=== PATIENT | female | born 1995 | race African-American/Black ===

== ENCOUNTER 2019-05-27 09:34 | Emergency (ER) | payer OTHER, SELFPAY ==
[2019-05-27 09:35] VITALS: BP 132/81; PULSE 82; RESP 18; TEMP 36.6; O2SAT 100; BMI 23.8
[2019-05-27 09:55] LABS: Add Manual Diff / Slide Review NO; Basophils Absolute Auto 100 /uL (0-100); Basophils Percent Auto 0.9 % (0-2); Eosinophils Absolute Auto 100 /uL (0-450); Eosinophils Percent Auto 0.9 % (2-4); Hematocrit 35.6 % (36-46); Hemoglobin 10.7 g/dL (12.0-16.0); Lymphocytes Absolute Auto 2000 /uL (1100-4500); Lymphocytes Percent Auto 32.2 % (25-40); Mean Corpuscular Hemoglobin 22.9 PG (26-34); Mean Corpuscular Volume 76.1 fL (80-100); Monocytes Absolute Auto 400 /uL (0-900); Monocytes Percent Auto 6.8 % (3-14); Neutrophils Absolute Auto 3600 /uL (1500-7000); Neutrophils Percent Auto 59.2 % (50-75); Platelet Count 374 X10^3/uL (150-400); Red Blood Cell Count 4.68 X10^6/uL (4.0-5.2); Red Cell Distribution Width 23.5 % (11.6-14.8); White Blood Cell Count 6.1 X10^3/uL (4.5-11.0)
--- NOTE | 2019-05-27 09:59 | ED_ITS ---
HPI - Syncope General Chief Complaint: Abdominal Pain Stated Complaint: Abd pain, nausea, passed out at work Time Seen by Provider: 05/27/19 09:42 Source: patient Mode of arrival: ambulatory Limitations: no limitations History of Present Illness HPI narrative: Patient is a 23 year female who presents with left lower quadrant pain. She was standing today at work when the pain got to be so severe that she passed out. She has not had any nausea or vomiting. She is trying naturally to get . Last menstrual period was 05/13/2019. She denies any abnormal vaginal bleeding. Related Data Allergies Allergy/AdvReac Type Severity Reaction Status Date / Time No Known Drug Allergies Allergy Verified 05/27/19 11:29 Review of Systems Review of Systems GENERAL: Denies chills, fatigue, malaise, fever, sweats, travel HEENT: Denies sinus pain, ear pain, sore throat, difficulty swallowing, neck pain RESPIRATORY: Denies dyspnea, cough, wheezing, hemoptysis, sputum. CARDIOVASCULAR: Denies chest pain, palpitations, orthopnea, edema GASTROINTESTINAL: Denies nausea, vomiting, abdominal pain, diarrhea, constipation, melena. : Denies dysuria, frequency, incontinence, hematuria, urinary retention, flank pain. MUSCULOSKELETAL: Denies weakness, joint pain, or bony pain SKIN: No rash, no erythema, no pruritus NEUROLOGIC: Denies weakness, dizziness, headache, numbness, change in speech, confusion PSYCHIATRIC: No concerning psychosocial issues. 12 point review of systems is negative except for those stated above and HPI ROS Unobtainable: All systems reviewed & are unremarkable except as noted in HPI and below Constitutional Denies chills, Denies fever(s), Denies lethargy and Denies weakness Eyes Denies change in vision, Denies eye discharge, Denies irritation and Denies loss of vision Cardiovascular Denies chest pain, Reports syncope, Denies irregular heart rhythm, Denies dyspnea and Denies dyspnea on exertion Respiratory Denies cough, Denies dyspnea, Denies dyspnea on exertion and Denies wheezing Gastrointestinal Gastrointestinal: Reports as per HPI Genitourinary Denies hematuria, Denies flank pain, Denies urinary incontinence and Denies urinary urgency Musculoskeletal Denies back pain, Denies muscle weakness, Denies numbness and Denies tingling Integumentary/Breasts Denies pruritus, Denies erythema, Denies rash and Denies wounds Neurologic Reports syncope, Denies loss of vision, Denies numbness, Denies tingling and Denies weakness Allergic/Immunologic Denies wheezing [facility] Medical History Patient denies significant medical history (Acute) Social History Smoking Status: Former smoker Social History Smoking Status: Former smoker Exam Initial Vital Signs Initial Vital Signs: Vital Signs Temperature 97.9 F 05/27/19 09:35 Pulse Rate 82 05/27/19 09:35 Respiratory Rate 18 05/27/19 09:35 Blood Pressure 132/81 05/27/19 09:35 Pulse Oximetry 100 05/27/19 09:35 GENERAL: [Well-appearing, well-nourished] and in [no acute] distress. HEENT: Head atraumatic,EOMI, pupils reactive, face symmetric, [moist] mucous membranes CARDIOVASCULAR: Regular rate and rhythm without murmurs, rubs or gallops. RESPIRATORY: Breath sounds equal bilaterally, no wheezes rales or rhonchi. ABDOMEN: Soft, tender left lower quadrant no guarding no rebound : No CVA tenderness EXTREMITIES: Normal range of motion, no clubbing or edema. Neurovascularly intact NEUROLOGICAL: Alert and oriented x4.Normal gait and speech. Cranial nerves II through XII grossly intact. SKIN: Warm, dry, no laceration, no petechiae, no rashes or lesions. Course Orders Ordered: ED Orders 05/27/19 09:43 Complete Blood Count AUTO DIFF Stat Comprehensive Metabolic Panel Stat Lipase Stat Partial Thromboplastin Time Stat Prothrombin Time INR Stat 05/27/19 09:49 EKG-12 Lead Stat 05/27/19 10:02 HCG Quantitative Stat 05/27/19 10:40 US pelvic complete Stat Discontinued Medications Sodium Chloride (Normal Saline 0.9%) 1,000 mls @ 1,000 mls/hr IV BOLUS ONE Stop: 05/27/19 10:50 Last Infusion: 05/27/19 12:41 Dose: 0 mls/hr Admin: 05/27/19 10:20 Dose: 1,000 mls/hr Ketorolac Tromethamine (Toradol) 30 mg IV NOW ONE Stop: 05/27/19 12:01 Last Admin: 05/27/19 11:57 Dose: 30 mg Vital Signs - 8 hr 05/27/19 09:35 05/27/19 10:38 05/27/19 12:14 Temperature 97.9 F Pulse Rate 82 62 62 Respiratory Rate 18 18 Blood Pressure 132/81 Blood Pressure [Left Arm] 122/71 Pulse Oximetry 100 100 100 05/27/19 12:41 Temperature Pulse Rate 79 Respiratory Rate 16 Blood Pressure 120/69 Blood Pressure [Left Arm] Pulse Oximetry 98 MDM - Syncope Lab Data Attestation: I reviewed the patient's lab results. Result diagrams: 05/27/19 09:43 05/27/19 09:43 Lab Results 05/27/19 05/27/19 05/27/19 Range/Units 09:43 09:43 09:43 WBC 6.1 (4.5-11.0) X10^3/uL RBC 4.68 (4.0-5.2) X10^6/uL Hgb 10.7 L (12.0-16.0) g/dL Hct 35.6 L (36-46) % MCV 76.1 L (80-100) fL MCH 22.9 L (26-34) PG MCHC 30.0 (30-36) % RDW 23.5 H (11.6-14.8) % Plt Count 374 (150-400) X10^3/uL Neut % (Auto) 59.2 (50-75) % Lymph % (Auto) 32.2 (25-40) % [place] % (Auto) 6.8 (3-14) % Eos % (Auto) 0.9 L (2-4) % Baso % (Auto) 0.9 (0-2) % Neut # (Auto) 3600 (8854-8672) /uL Lymph # (Auto) 2000 (8086-3314) /uL [place] # (Auto) 400 (0-900) /uL Eos # (Auto) 100 (0-450) /uL Baso # (Auto) 100 (0-100) /uL RBC Morphology See below Hypochromasia 1+ H Anisocytosis 2+ H PT 12.6 (10.1-12.7) SECONDS INR 1.1 (0.9-1.3) APTT 28 (26.4-36.2) SECONDS Sodium 140 (137-145) mmol/L Potassium 4.0 (3.4-5.1) mmol/L Chloride 103 (98-107) mmol/L Carbon Dioxide 26 (22-32) mmol/L BUN 13 (7-17) mg/dL Creatinine 0.60 (0.52-1.04) mg/dL Estimated GFR > 60.0 (>60) mL/min BUN/Creatinine Ratio 21.7 (6-22) Glucose 72 (70-100) mg/dL Calcium 9.5 (8.4-10.2) mg/dL Total Bilirubin 0.3 (0.2-1.3) mg/dL AST 28 (14-36) IU/L ALT 19 (9-52) IU/L Alkaline Phosphatase 56 (38-126) U/L Total Protein 8.6 H (6.3-8.2) g/dL Albumin 4.7 (3.5-5.0) g/dL Globulin 3.9 (1.7-4.1) g/dL Albumin/Globulin Ratio 1.2 (1.0-2.8) Lipase 91 (23-300) U/L HCG, Quant mIU/mL 05/27/19 Range/Units 10:02 WBC (4.5-11.0) X10^3/uL RBC (4.0-5.2) X10^6/uL Hgb (12.0-16.0) g/dL Hct (36-46) % MCV (80-100) fL MCH (26-34) PG MCHC (30-36) % RDW (11.6-14.8) % Plt Count (150-400) X10^3/uL Neut % (Auto) (50-75) % Lymph % (Auto) (25-40) % [place] % (Auto) (3-14) % Eos % (Auto) (2-4) % Baso % (Auto) (0-2) % Neut # (Auto) (0053-8535) /uL Lymph # (Auto) (2185-2355) /uL [place] # (Auto) (0-900) /uL Eos # (Auto) (0-450) /uL Baso # (Auto) (0-100) /uL RBC Morphology Hypochromasia Anisocytosis PT (10.1-12.7) SECONDS INR (0.9-1.3) APTT (26.4-36.2) SECONDS Sodium (137-145) mmol/L Potassium (3.4-5.1) mmol/L Chloride (98-107) mmol/L Carbon Dioxide (22-32) mmol/L BUN (7-17) mg/dL Creatinine (0.52-1.04) mg/dL Estimated GFR (>60) mL/min BUN/Creatinine Ratio (6-22) Glucose (70-100) mg/dL Calcium (8.4-10.2) mg/dL Total Bilirubin (0.2-1.3) mg/dL AST (14-36) IU/L ALT (9-52) IU/L Alkaline Phosphatase (38-126) U/L Total Protein (6.3-8.2) g/dL Albumin (3.5-5.0) g/dL Globulin (1.7-4.1) g/dL Albumin/Globulin Ratio (1.0-2.8) Lipase (23-300) U/L HCG, Quant < 2.39 mIU/mL Urine Dip Bedside Urine Glucose Negative Bedside Urine Bilirubin - Negative Bedside Urine Ketone - Negative Urine Specific [place] 1.015 Bedside Urine Occult Blood - Negative Bedside Urine pH 6.0 Bedside Urine Protein - Negative Bedside Urine Urobilinogen - Negative Bedside Urine Nitrite + Positive Bedside Urine Leukocytes - Negative Esterase Imaging Data us pelvis: Radiologist's impression: PROCEDURE: US PELVIC COMPLETE INDICATIONS: LEFT PELVIC PAIN AND SYNCOPE TECHNIQUE: Real-time scanning was performed of the pelvic organs, with image documentation. Additional endovaginal scanning was necessary due to incomplete visualization of the adnexal and endometrial structures by transabdominal scanning. COMPARISON: None. FINDINGS: Transabdominal scanning: Limited scanning through the kidneys shows no hydronephrosis. No pathologic free abdominal or pelvic fluid. Endovaginal scanning: Uterus: Uterus is normal in size at 7.6 x 4.5 x 5.0 cm. The endometrium measures 13-14 mm in combined thickness. Ovaries: Right ovary unremarkable measures 3.0 x 1.1 x 1.8 cm. The left ovary measures 3.5 x 2.4 x 2.9 cm and there is a complex cyst with internal echoes measuring 2.4 x 1.9 x 2.4 cm, possibly involuting or hemorrhagic follicular cyst technically indeterminate. Doppler interrogation demonstrates expected arterial waveforms. IMPRESSION: Presumed involuting left ovarian physiologic cyst. Six-week followup ultrasound could be performed to document resolution as the patients symptoms and clinical scenario dictate. Dictated by: Jameson Camarillo M.D. on 05/27/2019 at 12:37 ECG Data Attestation: I personally reviewed and interpreted this ECG as follows: Prior ECG tracings: not available for review Interpretation: Normal sinus rhythm rate 71 p.r. interval [address] changes no T-wave inversion MDM Narrative Medical decision making narrative: Patient overall appears well. She is not . No sign of ectopic. She does have a left ovarian cyst. Recommended follow-up. Discharge Plan Departure Patient Disposition: Home Clinical Impression: Ovarian cyst Qualifiers: Laterality: left Qualified Code(s): N83.202 - Unspecified ovarian cyst, left side Discharge Date/Time: 05/27/19 12:43 Interventions: ED Discharge Assessment Last Done: 05/27/19 12:41 Instructions: DI for Ovarian Cyst Activity Restrictions/Additional Instructions: *You have been diagnosed with ovarian cyst left-sided *What to do: Insist causes pain. It should resolve on its own. However it is recommended that you have repeat ultrasound in about 2-3 months to ensure it has resolved. It should not affect your ability to get *Continue to take medications as directed Motrin 800 mg every 8 hours if needed for pain *Follow up with your primary care provider in 2-3 days *Return to ER if you should have increasing pain passing out persistent vomiting or any new, worsening or concerning symptoms Referrals: [facility] [Outside]
[2019-05-27 10:01] LABS: INR 1.1 (0.9-1.3); Prothrombin Time 12.6 SECONDS (10.1-12.7)
[2019-05-27 10:03] LABS: PTT Partial Thromboplastin Tim 28 SECONDS (26.4-36.2)
[2019-05-27 10:05] LABS: Alanine Aminotransferase 19 IU/L (9-52); Albumin 4.7 g/dL (3.5-5.0); Albumin Globulin Ratio 1.2 (1.0-2.8); Alkaline Phosphatase 56 U/L (38-126); Aspartate Aminotransferase 28 IU/L (14-36); BUN Creatinine Ratio 21.7 (6-22); Bilirubin Total 0.3 mg/dL (0.2-1.3); Blood Urea Nitrogen 13 mg/dL (7-17); Calcium 9.5 mg/dL (8.4-10.2); Carbon Dioxide 26 mmol/L (22-32); Chloride 103 mmol/L (98-107); Estimated Glomerular Filt Rate > 60.0 mL/min (>60); Globulin 3.9 g/dL (1.7-4.1); Glucose 72 mg/dL (70-100); HEMOLYSIS < 15 (0-50); Lipase 91 U/L (23-300); Sodium 140 mmol/L (137-145); Total Protein 8.6 g/dL (6.3-8.2)
[2019-05-27 10:17] LABS: Anisocytosis 2+; Hypochromasia 1+
[2019-05-27] MEDS: SODIUM CHLORIDE 0.9% 1,000 ML 1000 ML IV (10:20)
[2019-05-27 10:28] LABS: HCG Quantitative /Beta subunit < 2.39 mIU/mL
[2019-05-27 10:38] VITALS: PULSE 62; O2SAT 100
--- NOTE | 2019-05-27 10:40 | DI.US.S_ITS ---
PROCEDURE: US PELVIC COMPLETE INDICATIONS: LEFT PELVIC PAIN AND SYNCOPE TECHNIQUE: Real-time scanning was performed of the pelvic organs, with image documentation. Additional endovaginal scanning was necessary due to incomplete visualization of the adnexal and endometrial structures by transabdominal scanning. COMPARISON: None. FINDINGS: Transabdominal scanning: Limited scanning through the kidneys shows no hydronephrosis. No pathologic free abdominal or pelvic fluid. Endovaginal scanning: Uterus: Uterus is normal in size at 7.6 x 4.5 x 5.0 cm. The endometrium measures 13-14 mm in combined thickness. Ovaries: Right ovary unremarkable measures 3.0 x 1.1 x 1.8 cm. The left ovary measures 3.5 x 2.4 x 2.9 cm and there is a complex cyst with internal echoes measuring 2.4 x 1.9 x 2.4 cm, possibly involuting or hemorrhagic follicular cyst technically indeterminate. Doppler interrogation demonstrates expected arterial waveforms. IMPRESSION: Presumed involuting left ovarian physiologic cyst. Six-week followup ultrasound could be performed to document resolution as the patients symptoms and clinical scenario dictate. Dictated by: Jameson Camarillo M.D. on 05/27/2019 at 12:37 Approved by: Jameson Camarillo M.D. on 05/27/2019 at 12:41
[2019-05-27] MEDS: KETOROLAC 60 MG/2 ML VIAL 30 MG IV (11:57)
[2019-05-27 12:14] VITALS: BP 122/71; PULSE 62; RESP 18; O2SAT 100
[2019-05-27 12:41] VITALS: BP 120/69; PULSE 79; RESP 16; O2SAT 98
== END 2019-05-27 12:43 | disposition home or self-care (01) ==
PROVIDERS: Emergency Provider Emergency Medicine
DX: N83.202 Unspecified ovarian cyst, left side (principal); R55 Syncope and collapse; R10.32 Left lower quadrant pain; Y99.1 Military activity
CPT/HCPCS: 36591; 76830; 76856; 80053; 81003; 83690; 84702; 85025; 85610; 85730; 93005; 96361; 96374; 99283; 99285; J1885

== ENCOUNTER 2019-10-21 15:10 | Emergency (ER) | payer OTHER, SELFPAY ==
[2019-10-21 15:13] VITALS: BP 116/70; PULSE 62; RESP 18; TEMP 36.1; O2SAT 100
[2019-10-21] MEDS: ONDANSETRON 4 MG ODT PO (15:20)
--- NOTE | 2019-10-21 15:28 | ED.ABDPAIN ---
HPI - Abdominal Pain General Chief Complaint: Abdominal Pain Stated Complaint: 2 wks abd cramps vomiting all day Time Seen by Provider: 10/21/19 15:27 Source: patient Mode of arrival: Ambulatory Limitations: no limitations Related Data Allergies Allergy/AdvReac Type Severity Reaction Status Date / Time No Known Drug Allergies Allergy Verified 05/27/19 11:29 Patient History Social History Smoking Status: Former smoker Smoking Status: Former smoker alcohol intake frequency: 0-2 drinks per day Substance Use Type: does not use Exam Initial Vital Signs Initial Vital Signs: Vital Signs Temperature 97.0 F L 10/21/19 15:13 Pulse Rate 62 10/21/19 15:13 Respiratory Rate 18 10/21/19 15:13 Blood Pressure 116/70 10/21/19 15:13 Pulse Oximetry 100 10/21/19 15:13 Course Orders Ordered: ED Orders 10/21/19 15:18 Complete Blood Count AUTO DIFF Stat Comprehensive Metabolic Panel Stat Lipase Stat Partial Thromboplastin Time Stat Prothrombin Time INR Stat Discontinued Medications Ondansetron HCl (Zofran Odt) 4 mg PO NOW ONE Stop: 10/21/19 15:19 Last Admin: 10/21/19 15:20 Dose: 4 mg Documented by: RAMA Vital Signs Vital signs: Vital Signs - 8 hr 10/21/19 15:13 Temperature 97.0 F L Pulse Rate 62 Respiratory Rate 18 Blood Pressure 116/70 Pulse Oximetry 100 MDM - Abdominal Pain Lab Data Point of care testing: Point of Care Testing Test Results Negative Urine Dip Bedside Urine Glucose Negative Bedside Urine Bilirubin + 1 Bedside Urine Ketone - Negative Urine Specific [place] 1.015 Bedside Urine Occult Blood - Negative Bedside Urine pH 6.0 Bedside Urine Protein - Negative Bedside Urine Urobilinogen - Negative Bedside Urine Nitrite + Positive Bedside Urine Leukocytes - Negative Esterase
[2019-10-21 15:34] LABS: Add Manual Diff / Slide Review NO; Basophils Absolute Auto 100 /uL (0-100); Basophils Percent Auto 0.8 % (0-2); Eosinophils Absolute Auto 0 /uL (0-450); Eosinophils Percent Auto 0.6 % (2-4); Hematocrit 36.8 % (36-46); Hemoglobin 11.9 g/dL (12.0-16.0); Lymphocytes Absolute Auto 2400 /uL (1100-4500); Lymphocytes Percent Auto 40.2 % (25-40); Mean Corpuscular HGB Conc 32.3 % (30-36); Mean Corpuscular Hemoglobin 28.2 PG (26-34); Mean Corpuscular Volume 87.4 fL (80-100); Monocytes Absolute Auto 400 /uL (0-900); Monocytes Percent Auto 7.2 % (3-14); Neutrophils Absolute Auto 3100 /uL (1500-7000); Neutrophils Percent Auto 51.2 % (50-75); Platelet Count 309 X10^3/uL (150-400); Red Blood Cell Count 4.21 X10^6/uL (4.0-5.2); Red Cell Distribution Width 13.6 % (11.6-14.8); White Blood Cell Count 6.1 X10^3/uL (4.5-11.0)
[2019-10-21 15:40] LABS: RBC Urine None Seen (0-5/HPF)
[2019-10-21 15:44] LABS: INR 1.1 (0.9-1.3); Prothrombin Time 12.9 SECONDS (10.1-12.7)
[2019-10-21 15:46] LABS: PTT Partial Thromboplastin Tim 31 SECONDS (26.4-36.2)
[2019-10-21 15:47] LABS: Amorphous Sediment Urine 1+; Bacteria Urine Many (>30); Squamous Epithelial Cell Urine 1-5 /HPF (0-5/HPF); WBC Urine 5-10/HPF (0-5/HPF)
[2019-10-21 15:48] LABS: Culture Indicated Urine Specimen Cultured; Mucus Urine 1+ (Negative)
[2019-10-21 15:48] LABS: Alanine Aminotransferase 16 IU/L (<35); Albumin 4.6 g/dL (3.5-5.0); Albumin Globulin Ratio 1.2 (1.0-2.8); Alkaline Phosphatase 59 U/L (38-126); Aspartate Aminotransferase 28 IU/L (14-36); BUN Creatinine Ratio 15.7 (6-22); Bilirubin Total 0.5 mg/dL (0.2-1.3); Blood Urea Nitrogen 11 mg/dL (7-17); Calcium 9.7 mg/dL (8.4-10.2); Carbon Dioxide 26 mmol/L (22-32); Chloride 102 mmol/L (98-107); Estimated Glomerular Filt Rate > 60.0 mL/min (>60); Globulin 3.7 g/dL (1.7-4.1); Glucose 83 mg/dL (70-100); HEMOLYSIS < 15 (0-50); Lipase 73 U/L (23-300); Potassium 3.9 mmol/L (3.4-5.1); Sodium 137 mmol/L (137-145); Total Protein 8.3 g/dL (6.3-8.2)
--- NOTE | 2019-10-21 17:00 | ED.ABDPAIN ---
HPI - Abdominal Pain General Chief Complaint: Abdominal Pain Stated Complaint: 2 wks abd cramps vomiting all day Time Seen by Provider: 10/21/19 15:27 Source: patient Mode of arrival: Ambulatory Limitations: no limitations History of Present Illness HPI narrative: Patient is a 24-year-old female with history of anemia presenting with 2 weeks of abdominal cramping she says it's been off and on she initially thought it was due to her. However she finished her menstrual cycle and she still has some lower abdominal cramping. She started vomiting today she is unable to keep anything down. No diarrhea no fevers, or chills. She received Zofran by triage in is now tolerating oral fluids and feeling better. MD complaint: abdominal pain Onset (ago): hour(s) Severity: mild Quality: cramping Radiation: none Related Data Previous Rx's Medication Instructions Recorded ondansetron 4 mg PO Q8H PRN #10 tab 10/21/19 Allergies Allergy/AdvReac Type Severity Reaction Status Date / Time No Known Drug Allergies Allergy Verified 05/27/19 11:29 Review of Systems Review of Systems Narrative: GENERAL: Denies chills, fatigue, malaise, fever, sweats, travel HEENT: Denies sinus pain, ear pain, sore throat, difficulty swallowing, neck pain RESPIRATORY: Denies dyspnea, cough, wheezing, hemoptysis, sputum. CARDIOVASCULAR: Denies chest pain, palpitations, orthopnea, edema GASTROINTESTINAL: See HPI : Denies dysuria, frequency, incontinence, hematuria, urinary retention, flank pain. MUSCULOSKELETAL: Denies weakness, joint pain, or bony pain SKIN: No rash, no erythema, no pruritus NEUROLOGIC: Denies weakness, dizziness, headache, numbness, change in speech, confusion PSYCHIATRIC: No concerning psychosocial issues. 12 point review of systems is negative except for those stated above and HPI Patient History Medical History Anemia (Acute) Patient denies significant medical history (Acute) Social History Smoking Status: Former smoker Smoking Status: Former smoker alcohol intake frequency: 0-2 drinks per day Substance Use Type: does not use Exam Initial Vital Signs Initial Vital Signs: Vital Signs Temperature 97.0 F L 10/21/19 15:13 Pulse Rate 62 10/21/19 15:13 Respiratory Rate 18 10/21/19 15:13 Blood Pressure 116/70 10/21/19 15:13 Pulse Oximetry 100 10/21/19 15:13 GENERAL: Well-appearing, well-nourished and in no acute distress. HEENT: Head atraumatic,EOMI, pupils reactive CARDIOVASCULAR: Regular rate and rhythm without murmurs, rubs or gallops. RESPIRATORY: Breath sounds equal bilaterally, no wheezes rales or rhonchi. ABDOMEN: Soft, nontender. Normoactive bowel sounds all 4 quadrants. No guarding or rebound. EXTREMITIES: Normal range of motion, no clubbing or edema. Neurovascularly intact NEUROLOGICAL: Alert and oriented x4.Normal gait and speech. SKIN: Warm, dry, no laceration, no petechiae, no rashes or lesions. Course Orders Ordered: ED Orders 10/21/19 15:19 Urine Culture Stat Urine Microscopic Stat 10/21/19 15:26 Complete Blood Count AUTO DIFF Stat Comprehensive Metabolic Panel Stat Lipase Stat Partial Thromboplastin Time Stat Prothrombin Time INR Stat Discontinued Medications Ondansetron HCl (Zofran Odt) 4 mg PO NOW ONE Stop: 10/21/19 15:19 Last Admin: 10/21/19 15:20 Dose: 4 mg Documented by: RAMA Vital Signs Vital signs: Vital Signs - 8 hr 10/21/19 15:13 10/21/19 17:08 Temperature 97.0 F L Pulse Rate 62 58 L Respiratory Rate 18 18 Blood Pressure 116/70 Blood Pressure [Right Arm] 122/70 Pulse Oximetry 100 99 MDM - Abdominal Pain Lab Data Attestation: I reviewed the patient's lab results. Result diagrams: 10/21/19 15:26 10/21/19 15:26 Labs: Lab Results 10/21/19 10/21/19 10/21/19 Range/Units 15:19 15:26 15:26 WBC 6.1 (4.5-11.0) X10^3/uL RBC 4.21 (4.0-5.2) X10^6/uL Hgb 11.9 L (12.0-16.0) g/dL Hct 36.8 (36-46) % MCV 87.4 (80-100) fL MCH 28.2 (26-34) PG MCHC 32.3 (30-36) % RDW 13.6 (11.6-14.8) % Plt Count 309 (150-400) X10^3/uL Neut % (Auto) 51.2 (50-75) % Lymph % (Auto) 40.2 H (25-40) % [place] % (Auto) 7.2 (3-14) % Eos % (Auto) 0.6 L (2-4) % Baso % (Auto) 0.8 (0-2) % Neut # (Auto) 3100 (5832-3459) /uL Lymph # (Auto) 2400 (4135-4117) /uL [place] # (Auto) 400 (0-900) /uL Eos # (Auto) 0 (0-450) /uL Baso # (Auto) 100 (0-100) /uL PT 12.9 H (10.1-12.7) SECONDS INR 1.1 (0.9-1.3) APTT 31 D (26.4-36.2) SECONDS Sodium (137-145) mmol/L Potassium (3.4-5.1) mmol/L Chloride (98-107) mmol/L Carbon Dioxide (22-32) mmol/L BUN (7-17) mg/dL Creatinine (0.52-1.04) mg/dL Estimated GFR (>60) mL/min BUN/Creatinine Ratio (6-22) Glucose (70-100) mg/dL Calcium (8.4-10.2) mg/dL Total Bilirubin (0.2-1.3) mg/dL AST (14-36) IU/L ALT (<35) IU/L Alkaline Phosphatase (38-126) U/L Total Protein (6.3-8.2) g/dL Albumin (3.5-5.0) g/dL Globulin (1.7-4.1) g/dL Albumin/Globulin Ratio (1.0-2.8) Lipase (23-300) U/L Urine RBC None seen (0-5/HPF) Urine WBC 5-10/hpf H (0-5/HPF) Ur Squamous Epith Cells 1-5 /hpf (0-5/HPF) Amorphous Sediment 1+ Urine Bacteria Many (>30) H (None) Urine Mucus 1+ H (Negative) Ur Culture Indicated? Specimen cultured 10/21/19 Range/Units 15:26 WBC (4.5-11.0) X10^3/uL RBC (4.0-5.2) X10^6/uL Hgb (12.0-16.0) g/dL Hct (36-46) % MCV (80-100) fL MCH (26-34) PG MCHC (30-36) % RDW (11.6-14.8) % Plt Count (150-400) X10^3/uL Neut % (Auto) (50-75) % Lymph % (Auto) (25-40) % [place] % (Auto) (3-14) % Eos % (Auto) (2-4) % Baso % (Auto) (0-2) % Neut # (Auto) (6250-6006) /uL Lymph # (Auto) (0311-0544) /uL [place] # (Auto) (0-900) /uL Eos # (Auto) (0-450) /uL Baso # (Auto) (0-100) /uL PT (10.1-12.7) SECONDS INR (0.9-1.3) APTT (26.4-36.2) SECONDS Sodium 137 (137-145) mmol/L Potassium 3.9 (3.4-5.1) mmol/L Chloride 102 (98-107) mmol/L Carbon Dioxide 26 (22-32) mmol/L BUN 11 (7-17) mg/dL Creatinine 0.70 (0.52-1.04) mg/dL Estimated GFR > 60.0 (>60) mL/min BUN/Creatinine Ratio 15.7 (6-22) Glucose 83 (70-100) mg/dL Calcium 9.7 (8.4-10.2) mg/dL Total Bilirubin 0.5 (0.2-1.3) mg/dL AST 28 (14-36) IU/L ALT 16 (<35) IU/L Alkaline Phosphatase 59 (38-126) U/L Total Protein 8.3 H (6.3-8.2) g/dL Albumin 4.6 (3.5-5.0) g/dL Globulin 3.7 (1.7-4.1) g/dL Albumin/Globulin Ratio 1.2 (1.0-2.8) Lipase 73 (23-300) U/L Urine RBC (0-5/HPF) Urine WBC (0-5/HPF) Ur Squamous Epith Cells (0-5/HPF) Amorphous Sediment Urine Bacteria (None) Urine Mucus (Negative) Ur Culture Indicated? Point of care testing: Point of Care Testing Test Results Negative Urine Dip Bedside Urine Glucose Negative Bedside Urine Bilirubin + 1 Bedside Urine Ketone - Negative Urine Specific [place] 1.015 Bedside Urine Occult Blood - Negative Bedside Urine pH 6.0 Bedside Urine Protein - Negative Bedside Urine Urobilinogen - Negative Bedside Urine Nitrite + Positive Bedside Urine Leukocytes - Negative Esterase MDM Narrative Medical decision making narrative: Patient denies any dysuria urinary frequency no UTI symptom she has no leukocytes or nitrates in her urine however she does have bacteria this time not treat. She is tolerating oral fluids since given Zofran. At this time no need for IV fluids. Discharge Plan Departure Patient Disposition: Home Clinical Impression: Gastroenteritis Discharge Date/Time: 10/21/19 17:20 Instructions: DI for Viral Gastroenteritis -- Adult Activity Restrictions/Additional Instructions: 1) You have been diagnosed with gastroenteritis 2) What to do: Drink frequent but small amounts of fluids. I recommend Gatorade or a Gatorade-like product, as it has small amounts of sugar and salts that improve fluid retention. 3) Take medications as directed 4) Follow up with your primary care provider in 2-3 days [and follow up with ortho, urology etc] 5) Return to ER if you should have any new or worsening symptoms such as, unable to hold down fluids despite use of anti-nausea medications and the small volume oral rehydration strategy. Prescriptions: New ondansetron 4 mg tablet,disintegrating 4 mg PO Q8H PRN (Reason: nausea and vomiting) Qty: 10 RF: 0 Referrals: [facility] [Outside]
[2019-10-21 17:08] VITALS: BP 122/70; PULSE 58; RESP 18; O2SAT 99
== END 2019-10-21 17:20 | disposition home or self-care (01) ==
PROVIDERS: Nurse Practitioner Family; Emergency Provider Emergency Medicine
DX: A08.4 Viral intestinal infection, unspecified (principal); N39.0 Urinary tract infection, site not specified
CPT/HCPCS: 36415; 80053; 81003; 81015; 81025; 83690; 85025; 85610; 85730; 87077; 87086; 87186; 99282; 99283

== ENCOUNTER 2019-12-22 09:49 | Emergency (ER) | payer OTHER, SELFPAY ==
[2019-12-22 09:58] VITALS: BP 123/74; PULSE 105; RESP 16; TEMP 36.7; O2SAT 100; BMI 23.3
--- NOTE | 2019-12-22 11:45 | ED.URI ---
HPI - URI/Sore Throat <OLGA Burgess - Last Filed: 12/22/19 21:54> General Chief Complaint: Upper Respiratory Symptoms Stated Complaint: swabbed for strep Time Seen by Provider: 12/22/19 09:54 Source: patient Mode of arrival: Ambulatory History of Present Illness HPI Narrative: 24yo female with a history of anemia presents to the emergency department complaining of a sore throat that started last night. She states her co-worker was recently diagnosed with strep throat and she is worried she may have the same. She does report occasional dry cough and rhinorrhea this morning. Patient states she was given Macrobid yesterday for urinary tract infection but has not started taking this at this time yet. She denies any fevers or chills at home, chest pain, shortness of breath, dizziness, productive cough, dizziness, nausea, vomiting, diarrhea at this time, or any other concerns. Patient states she did vomit once at the beginning of the week but has not had any issues since. Related Data Home Medications Medication Instructions Recorded Confirmed nitrofurantoin monohyd/m-cryst 100 mg PO BID 12/22/19 12/22/19 Previous Rx's Medication Instructions Recorded ondansetron 4 mg PO Q8H PRN #10 tab 10/21/19 Allergies Allergy/AdvReac Type Severity Reaction Status Date / Time No Known Drug Allergies Allergy Verified 12/22/19 09:58 Review of Systems <OLGA Burgess - Last Filed: 12/22/19 21:54> Review of Systems Narrative: REVIEW OF SYSTEMS: GENERAL: Denies fevers. HENT: No head trauma or hearing loss. Reports sore throat, see HPI. EYES: No loss of vision, double vision, eye pain, irritation or discharge. CARDIOVASCULAR: No chest pain or syncope. RESPIRATORY: No shortness of breath. Reports dry cough, see HPI. GASTROINTESTINAL: No nausea, vomiting, diarrhea, or constipation. MUSCULOSKELETAL: No weakness or injury. INTEGUMENTARY: No rash, lesions, or pruritus. NEURO: No memory loss, or confusion. Patient History <OLGA Burgess - Last Filed: 12/22/19 21:54> Medical History Anemia (Acute) Patient denies significant medical history (Acute) Social History Smoking Status: Former smoker Smoking Status: Former smoker alcohol intake frequency: 0-2 drinks per day Substance Use Type: does not use Exam <OLGA Burgess - Last Filed: 12/22/19 21:54> Initial Vital Signs Initial Vital Signs: Vital Signs Temperature 98.1 F 12/22/19 09:58 Pulse Rate 105 H 12/22/19 09:58 Respiratory Rate 16 12/22/19 09:58 Blood Pressure 123/74 12/22/19 09:58 Pulse Oximetry 100 12/22/19 09:58 PHYSICAL EXAMINATION: GENERAL: Well groomed, alert, and cooperative. Answers questions promptly and appropriately. Vital signs noted. HENT: Normocephalic, atraumatic. Ear canals patent. TMs intact without mucus or erythema. Oropharynx with erythema, tonsils 1+, small amount exudate noted, small amount of petechiae noted. EYES: PERRLA, conjunctiva pink, sclera white, no periorbital swelling. No discharge. CHEST: Normal to inspection and without deformities. CARDIOVASCULAR: S1 and S2 sounds normal. Regular rate and rhythm, no murmurs, clicks, or bruits. RESPIRATORY: Normal respiratory rate, trachea midline, airway patent. No stridor, nasal flaring or accessory muscle use. Able to speak in full sentences. Lungs are clear in all morfin without wheeze, rhonchi, or crackles. MUSCULOSKELETAL: Normal gait and coordination. Equal tone and mass bilaterally. GI: Abdomen soft and nontender. EXTREMITIES: Moves all extremities. SKIN: Warm, dry, soft, appropriate color for ethnicity. No lesions, rashes, or wounds to visualized areas. NEURO: Alert and Oriented X 3. Good coordination. No ataxia or cognitive issues. PSYCH: Appropriate affect and mood. <Gino Hernadez DO - Last Filed: 12/23/19 08:10> Initial Vital Signs Initial Vital Signs: Vital Signs Temperature 98.1 F 12/22/19 09:58 Pulse Rate 105 H 12/22/19 09:58 Respiratory Rate 16 12/22/19 09:58 Blood Pressure 123/74 12/22/19 09:58 Pulse Oximetry 100 12/22/19 09:58 Course <OLGA Burgess - Last Filed: 12/22/19 21:54> Course Course Narrative: Patient was swabbed for strep, the initial test was evaluated. Patient's swab was retested. Vital Signs Vital signs: Vital Signs - 8 hr 12/22/19 09:58 Temperature 98.1 F Pulse Rate 105 H Respiratory Rate 16 Blood Pressure 123/74 Pulse Oximetry 100 <Gino Hernadez DO - Last Filed: 12/23/19 08:10> Vital Signs Vital signs: Vital Signs - 8 hr 12/22/19 09:58 Temperature 98.1 F Pulse Rate 105 H Respiratory Rate 16 Blood Pressure 123/74 Pulse Oximetry 100 MDM - URI/Sore Throat <Clarita OLGA Smith - Last Filed: 12/22/19 21:54> Medical Records Attestation: I reviewed the patient's medical records. Lab Data Attestation: I reviewed the patient's lab results. Labs: Point of Care Testing Rapid Strep A Negative MDM Narrative Medical decision making narrative: History and examination consistent with viral pharyngitis due to negative strep test, presence of cough, and presence of rhinorrhea as well as lack of other significant symptoms such as tachycardia or fever to suggest other. Patient was educated about [id number] symptom control, ibuprofen, saltwater gargles. She was encouraged to follow up with her primary care provider in 1-2 weeks for further evaluation. Patient agrees to plan of care verbalized understanding. <Gino Hernadez DO - Last Filed: 12/23/19 08:10> Lab Data Labs: Point of Care Testing Rapid Strep A Negative Discharge Plan Departure Patient Disposition: Home Clinical Impression: Pharyngitis Qualifiers: Pharyngitis/tonsillitis etiology: unspecified etiology Qualified Code(s): J02.9 - Acute pharyngitis, unspecified Discharge Date/Time: 12/22/19 12:20 Instructions: DI for Viral Pharyngitis Activity Restrictions/Additional Instructions: Thank you for entrusting me with your care today. As discussed, your strep test is negative. You most likely have a virus. I suggest using warm salt water gargles, ibuprofen, and [id number] cold medication for pain and symptom control. Please follow up with your primary care provider in 1-2 weeks for further evaluation if symptoms continue. Return emergency department for any new or worsening symptoms such as severe headaches, uncontrollable vomiting, syncope, or any other concerns. Prescriptions: No Action ondansetron 4 mg tablet,disintegrating 4 mg PO Q8H PRN (Reason: nausea and vomiting) Qty: 10 RF: 0 nitrofurantoin monohyd/m-cryst 100 mg capsule 100 mg PO BID RF: 0
[2019-12-22 12:19] VITALS: BP 108/62; PULSE 81; O2SAT 100
== END 2019-12-22 12:20 | disposition home or self-care (01) ==
PROVIDERS: Emergency Provider Nurse Practitioner
DX: J02.9 Acute pharyngitis, unspecified (principal)
CPT/HCPCS: 87880; 99281; 99282

== ENCOUNTER 2020-07-08 14:25 | Emergency (ER) | payer OTHER, SELFPAY ==
[2020-07-08 14:33] VITALS: BP 127/76; PULSE 90; RESP 14; TEMP 36.9; O2SAT 100; BMI 23.3
[2020-07-08 14:52] LABS: Add Manual Diff / Slide Review NO; Basophils Absolute Auto 100 /uL (0-100); Eosinophils Absolute Auto 100 /uL (0-450); Eosinophils Percent Auto 0.9 % (2-4); Hematocrit 31.5 % (36-46); Hemoglobin 9.5 g/dL (12.0-16.0); Lymphocytes Absolute Auto 3200 /uL (1100-4500); Lymphocytes Percent Auto 32.2 % (25-40); Mean Corpuscular HGB Conc 30.3 % (30-36); Mean Corpuscular Hemoglobin 22.3 PG (26-34); Mean Corpuscular Volume 73.5 fL (80-100); Monocytes Absolute Auto 700 /uL (0-900); Monocytes Percent Auto 7.1 % (3-14); Neutrophils Absolute Auto 5800 /uL (1500-7000); Neutrophils Percent Auto 58.8 % (50-75); Platelet Count 297 X10^3/uL (150-400); Red Blood Cell Count 4.28 X10^6/uL (4.0-5.2); Red Cell Distribution Width 16.7 % (11.6-14.8); White Blood Cell Count 9.8 X10^3/uL (4.5-11.0)
--- NOTE | 2020-07-08 14:59 | DI.RAD.S_ITS ---
PROCEDURE: XR ACUTE ABDOMEN SERIES INDICATIONS: vomiting, abd pain TECHNIQUE: One view chest and two views of the abdomen were acquired. COMPARISON: None. FINDINGS: Surgical changes and devices: None. Chest: Lungs are clear. Heart size is normal. No pleural effusions. No pneumoperitoneum. Abdomen: Bowel gas pattern is normal. Moderately large fecal debris. No suspicious calcifications. Visualized solid organ contours appear normal. Bones: No suspicious bony lesions. IMPRESSION: Moderately large fecal debris. No evidence of acute abdominal process. No evidence of acute pulmonary process. Dictated by: Sergei Snow M.D. on 07/08/2020 at 14:30 Approved by: Sergei Snow M.D. on 07/08/2020 at 14:30
[2020-07-08 15:02] LABS: Alanine Aminotransferase 12 IU/L (<35); Albumin 4.6 g/dL (3.5-5.0); Albumin Globulin Ratio 1.1 (1.0-2.8); Alkaline Phosphatase 65 U/L (38-126); Aspartate Aminotransferase 26 IU/L (14-36); BUN Creatinine Ratio 25.8 (6-22); Bilirubin Total 0.4 mg/dL (0.2-1.3); Blood Urea Nitrogen 17 mg/dL (7-17); Calcium 9.2 mg/dL (8.4-10.2); Carbon Dioxide 24 mmol/L (22-32); Chloride 104 mmol/L (98-107); Estimated Glomerular Filt Rate > 60.0 mL/min (>60); Globulin 4.1 g/dL (1.7-4.1); Glucose 91 mg/dL (70-100); HEMOLYSIS < 15 (0-50); Lipase 114 U/L (23-300); Potassium 4.1 mmol/L (3.4-5.1); Sodium 137 mmol/L (137-145); Total Protein 8.7 g/dL (6.3-8.2)
[2020-07-08] MEDS: SODIUM CHLORIDE 0.9% 1,000 ML 1000 ML IV (15:09)
[2020-07-08] MEDS: ONDANSETRON 4 MG/2 ML INJ IV (15:09)
[2020-07-08 15:37] LABS: COVID19 -Nasal RAPID Negative (Negative)
[2020-07-08] MEDS: ONDANSETRON 4 MG ODT SL (15:59)
--- NOTE | 2020-07-08 16:39 | ED.NAVMDI ---
HPI - Nausea/Vomiting/Diarrhea <TIMOTHY Andrews-BC - Last Filed: 07/08/20 17:03> General Chief complaint: Nausea/Vomiting/Diarrhea Stated complaint: Vomiting all morning Time Seen by Provider: 07/08/20 14:30 Source: patient Mode of arrival: Ambulatory Limitations: no limitations History of Present Illness HPI Narrative: The patient is a 25-year-old female former smoker presents with a chief complaint of nausea and vomiting since this morning. She states that she woke up at 3 or 4:00 a.m. in the morning vomiting. Denies any fevers. Denies any diarrhea. Last bowel movement yesterday. She states that she has a history of anemia, denies any chest pain or shortness of breath. She states that a lot of people in her employer are ill at this point time with a similar GI bug. She denies any bloody vomit. She denies any possibility of or dysuria urgency or frequency. Related Data Home Medications Medication Instructions Recorded Confirmed nitrofurantoin monohyd/m-cryst 100 mg PO BID 12/22/19 12/22/19 Previous Rx's Medication Instructions Recorded ondansetron 4 mg PO Q8H PRN #10 tab 10/21/19 ondansetron 4 mg PO Q6H PRN #20 tab 07/08/20 Allergies Allergy/AdvReac Type Severity Reaction Status Date / Time No Known Drug Allergies Allergy Verified 12/22/19 09:58 Review of Systems <TIMOTHY Andrews-BC - Last Filed: 07/08/20 17:03> Review of Systems Narrative: GENERAL: Denies chills, fatigue, malaise, fever, sweats. HEENT: Denies sinus pain, ear pain, sore throat, difficulty swallowing, dizziness. RESPIRATORY: Denies dyspnea, cough, wheezing, hemoptysis, sputum. CARDIOVASCULAR: Denies chest pain, palpitations, orthopnea, edema, GASTROINTESTINAL: See HPI : Denies dysuria, frequency, incontinence, hematuria, urinary retention. MUSCULOSKELETAL: denies weakness, joint pain, or bony pain SKIN: Denies rash, skin lesions, or other NEUROLOGIC: Denies weakness, headache, numbness, change in speech, confusion, seizures, incoordination. PSYCHIATRIC: No concerning psychosocial issues. 12 point review of systems is negative except for those stated above Patient History <CHEMA Andrews - Last Filed: 07/08/20 17:03> Medical History Anemia (Acute) Patient denies significant medical history (Acute) Social History Smoking Status: Former smoker Smoking Status: Former smoker alcohol intake frequency: 0-2 drinks per day Substance Use Type: does not use Exam <CHEMA Andrews - Last Filed: 07/08/20 17:03> Narrative Exam Narrative: GENERAL: This is a well-nourished, well-developed patient, no acute distress HEAD: Atraumatic. Normocephalic. No temporal or scalp tenderness. EYES: Pupils equal round and reactive. Extraocular motions intact. No scleral icterus. No injection or drainage. ENT: Nose without bleeding, purulent drainage or septal hematoma. Throat without erythema, tonsillar hypertrophy or exudate. Uvula midline. Airway patent. NECK: Trachea midline. No JVD or lymphadenopathy. Supple, nontender, no meningeal signs. CARDIOVASCULAR: Regular rate and rhythm RESPIRATORY: Clear to auscultation. Breath sounds equal bilaterally. No wheezes, rales, or rhonchi. No cough. No increased respiratory effort. No accessory muscle use. GASTROINTESTINAL: Abdomen soft, diffusely tender to palpation, nondistended. No hepato-splenomegaly, or palpable masses. No guarding. Active sounds all 4 quadrants EXTREMITIES: No clubbing, cyanosis, or edema. No joint tenderness, effusion, or edema noted. BACK: Nontender without deformity or crepitance. No flank tenderness. NEURO: AOx3. SKIN: No rash or erythema on visible skin Initial Vital Signs Initial Vital Signs: Vital Signs Temperature 98.4 F 07/08/20 14:33 Pulse Rate 90 07/08/20 14:33 Respiratory Rate 14 07/08/20 14:33 Blood Pressure 127/76 07/08/20 14:33 Pulse Oximetry 100 07/08/20 14:33 <Gino Hernadez DO - Last Filed: 07/08/20 18:01> Initial Vital Signs Initial Vital Signs: Vital Signs Temperature 98.4 F 07/08/20 14:33 Pulse Rate 90 07/08/20 14:33 Respiratory Rate 14 07/08/20 14:33 Blood Pressure 127/76 07/08/20 14:33 Pulse Oximetry 100 07/08/20 14:33 Scores <CHEMA Andrews - Last Filed: 07/08/20 17:03> GCS Adela coma scale eye opening: Spontaneous Addison coma scale verbal response: Orientated Addison coma scale motor response: Obey commands Addison coma scale total score: 15 Course <CHEMA Andrews - Last Filed: 07/08/20 17:03> Orders Ordered: ED Orders 07/08/20 14:44 Complete Blood Count AUTO DIFF Stat Comprehensive Metabolic Panel Stat Lipase Stat 07/08/20 14:59 XR acute abdomen series Stat 07/08/20 15:17 COVID19 -ED/INPAT/OR/L&D Stat Discontinued Medications Sodium Chloride (Normal Saline 0.9%) 1,000 mls @ 1,000 mls/hr IV BOLUS ONE Stop: 07/08/20 15:40 Last Infusion: 07/08/20 17:03 Dose: 0 mls/hr Documented by: Admin: 07/08/20 15:09 Dose: 1,000 mls/hr Documented by: YOSSI Ondansetron HCl (Zofran) 4 mg IV NOW ONE Stop: 07/08/20 14:42 Last Admin: 07/08/20 15:09 Dose: 4 mg Documented by: YOSSI Ondansetron HCl (Zofran Odt) 4 mg SL NOW ONE Stop: 07/08/20 15:56 Last Admin: 07/08/20 15:59 Dose: 4 mg Documented by: YOSSI Vital Signs Vital signs: Vital Signs - 8 hr 07/08/20 14:33 07/08/20 16:57 Temperature 98.4 F Pulse Rate 90 77 Respiratory Rate 14 Blood Pressure 127/76 113/59 L Pulse Oximetry 100 100 <Gino Hernadez DO - Last Filed: 07/08/20 18:01> Orders Ordered: ED Orders 07/08/20 14:44 Complete Blood Count AUTO DIFF Stat Comprehensive Metabolic Panel Stat Lipase Stat 07/08/20 14:59 XR acute abdomen series Stat 07/08/20 15:17 COVID19 -ED/INPAT/OR/L&D Stat Discontinued Medications Sodium Chloride (Normal Saline 0.9%) 1,000 mls @ 1,000 mls/hr IV BOLUS ONE Stop: 07/08/20 15:40 Last Infusion: 07/08/20 17:03 Dose: 0 mls/hr Documented by: Admin: 07/08/20 15:09 Dose: 1,000 mls/hr Documented by: YOSSI Ondansetron HCl (Zofran) 4 mg IV NOW ONE Stop: 07/08/20 14:42 Last Admin: 07/08/20 15:09 Dose: 4 mg Documented by: YOSSI Ondansetron HCl (Zofran Odt) 4 mg SL NOW ONE Stop: 07/08/20 15:56 Last Admin: 07/08/20 15:59 Dose: 4 mg Documented by: YOSSI Vital Signs Vital signs: Vital Signs - 8 hr 07/08/20 14:33 07/08/20 16:57 Temperature 98.4 F Pulse Rate 90 77 Respiratory Rate 14 Blood Pressure 127/76 113/59 L Pulse Oximetry 100 100 MDM - Nausea/Vomiting/Diarrhea <TIMOTHY Andrews- - Last Filed: 07/08/20 17:03> Lab Data Attestation: I reviewed the patient's lab results. Result diagrams: 07/08/20 14:44 07/08/20 14:44 Labs: Lab Results 07/08/20 07/08/20 07/08/20 Range/Units 14:44 14:44 15:17 WBC 9.8 (4.5-11.0) X10^3/uL RBC 4.28 (4.0-5.2) X10^6/uL Hgb 9.5 L (12.0-16.0) g/dL Hct 31.5 L (36-46) % MCV 73.5 L (80-100) fL MCH 22.3 L (26-34) PG MCHC 30.3 (30-36) % RDW 16.7 H (11.6-14.8) % Plt Count 297 (150-400) X10^3/uL Neut % (Auto) 58.8 (50-75) % Lymph % (Auto) 32.2 (25-40) % Grady % (Auto) 7.1 (3-14) % Eos % (Auto) 0.9 L (2-4) % Baso % (Auto) 1.0 (0-2) % Neut # (Auto) 5800 (7682-1198) /uL Lymph # (Auto) 3200 (6752-1235) /uL Grady # (Auto) 700 (0-900) /uL Eos # (Auto) 100 (0-450) /uL Baso # (Auto) 100 (0-100) /uL Sodium 137 (137-145) mmol/L Potassium 4.1 (3.4-5.1) mmol/L Chloride 104 (98-107) mmol/L Carbon Dioxide 24 (22-32) mmol/L BUN 17 (7-17) mg/dL Creatinine 0.66 (0.52-1.04) mg/dL Estimated GFR > 60.0 (>60) mL/min BUN/Creatinine Ratio 25.8 H (6-22) Glucose 91 (70-100) mg/dL Calcium 9.2 (8.4-10.2) mg/dL Total Bilirubin 0.4 (0.2-1.3) mg/dL AST 26 (14-36) IU/L ALT 12 (<35) IU/L Alkaline Phosphatase 65 (38-126) U/L Total Protein 8.7 H (6.3-8.2) g/dL Albumin 4.6 (3.5-5.0) g/dL Globulin 4.1 (1.7-4.1) g/dL Albumin/Globulin Ratio 1.1 (1.0-2.8) Lipase 114 (23-300) U/L COVID-19 PCR Negative (Negative) Point of Care Testing Test Results Negative Urine Dip Bedside Urine Glucose Negative Bedside Urine Bilirubin + 1 Bedside Urine Ketone - Negative Urine Specific Jasper 1.030 Bedside Urine Occult Blood - Negative Bedside Urine pH 6.0 Bedside Urine Protein +/- 15 Bedside Urine Urobilinogen - Negative Bedside Urine Nitrite - Negative Bedside Urine Leukocytes - Negative Esterase Imaging Data Abdominal x-ray: Radiologist's Impression: [address] [place] [id number] XRay Report Signed Patient: Nora Carlos [facility]#: [id number] : 1995Acct:[id number] Age/Sex: 25 / FDate of Service: 07/08/20 Loc: ED Accession Number: [id number] Procedure: XR acute abdomen series Ordering Provider: Marisol Dyson PROCEDURE: XR ACUTE ABDOMEN SERIES INDICATIONS: vomiting, abd pain TECHNIQUE: One view chest and two views of the abdomen were acquired. COMPARISON: None. FINDINGS: Surgical changes and devices: None. Chest: Lungs are clear. Heart size is normal. No pleural effusions. No pneumoperitoneum. Abdomen: Bowel gas pattern is normal. Moderately large fecal debris. No suspicious calcifications. Visualized solid organ contours appear normal. Bones: No suspicious bony lesions. IMPRESSION: Moderately large fecal debris. No evidence of acute abdominal process. No evidence of acute pulmonary process. Dictated by: Sergei Snow M.D. on 07/08/2020 at 14:30 Approved by: Sergei Snow M.D. on 07/08/2020 at 14:30 MDM Narrative Medical decision making narrative: The patient is a 25-year-old female who presents with a chief complaint of nausea and vomiting, no fevers. Urinalysis shows no evidence of urinary tract infection. test is negative. Basic labs are within normal limits with the patient, she is found to be anemic with a hemoglobin of 9.5, but states that this is normal for her. After IV fluids and Zofran she is able to tolerate p.o. food and fluids very well. She tests negative for coronavirus. She does not have an acute abdomen on exam. I discussed at length with the patient that she is not cleared to go back to work until she is 24 hours without fever, vomiting or diarrhea. She has not had no fever or diarrhea, has not vomited throughout her stay in the emergency department. I discussed at length the importance of follow-up with primary care provider in the next few days and coming back to the ER for acute concerns such as inability keep down fluids, abdominal pain with fever etcetera. Patient has no questions or concerns upon discharge and states understanding of return precautions as well as follow-up care. <Gino Hernadez DO - Last Filed: 07/08/20 18:01> Lab Data Labs: Lab Results 07/08/20 07/08/20 07/08/20 Range/Units 14:44 14:44 15:17 WBC 9.8 (4.5-11.0) X10^3/uL RBC 4.28 (4.0-5.2) X10^6/uL Hgb 9.5 L (12.0-16.0) g/dL Hct 31.5 L (36-46) % MCV 73.5 L (80-100) fL MCH 22.3 L (26-34) PG MCHC 30.3 (30-36) % RDW 16.7 H (11.6-14.8) % Plt Count 297 (150-400) X10^3/uL Neut % (Auto) 58.8 (50-75) % Lymph % (Auto) 32.2 (25-40) % Grady % (Auto) 7.1 (3-14) % Eos % (Auto) 0.9 L (2-4) % Baso % (Auto) 1.0 (0-2) % Neut # (Auto) 5800 (5775-0699) /uL Lymph # (Auto) 3200 (5945-6409) /uL Grady # (Auto) 700 (0-900) /uL Eos # (Auto) 100 (0-450) /uL Baso # (Auto) 100 (0-100) /uL Sodium 137 (137-145) mmol/L Potassium 4.1 (3.4-5.1) mmol/L Chloride 104 (98-107) mmol/L Carbon Dioxide 24 (22-32) mmol/L BUN 17 (7-17) mg/dL Creatinine 0.66 (0.52-1.04) mg/dL Estimated GFR > 60.0 (>60) mL/min BUN/Creatinine Ratio 25.8 H (6-22) Glucose 91 (70-100) mg/dL Calcium 9.2 (8.4-10.2) mg/dL Total Bilirubin 0.4 (0.2-1.3) mg/dL AST 26 (14-36) IU/L ALT 12 (<35) IU/L Alkaline Phosphatase 65 (38-126) U/L Total Protein 8.7 H (6.3-8.2) g/dL Albumin 4.6 (3.5-5.0) g/dL Globulin 4.1 (1.7-4.1) g/dL Albumin/Globulin Ratio 1.1 (1.0-2.8) Lipase 114 (23-300) U/L COVID-19 PCR Negative (Negative) Point of Care Testing Test Results Negative Urine Dip Bedside Urine Glucose Negative Bedside Urine Bilirubin + 1 Bedside Urine Ketone - Negative Urine Specific Jasper 1.030 Bedside Urine Occult Blood - Negative Bedside Urine pH 6.0 Bedside Urine Protein +/- 15 Bedside Urine Urobilinogen - Negative Bedside Urine Nitrite - Negative Bedside Urine Leukocytes - Negative Esterase Discharge Plan Departure Patient Disposition: Home Clinical Impression: Anemia Qualifiers: Anemia type: unspecified type Qualified Code(s): D64.9 - Anemia, unspecified Nausea & vomiting Qualifiers: Vomiting type: unspecified Vomiting Intractability: non-intractable Qualified Code(s): R11.2 - Nausea with vomiting, unspecified Discharge Date/Time: 07/08/20 17:03 Activity Restrictions/Additional Instructions: Thank you for trusting us with your care today. As discussed, your labs and images came back with no acute findings. As discussed, your labs reflect anemia, you state that is chronic for you. Please follow up with primary care provider in the next few days. As discussed, please come back to the emergency department for any acute concerns such as abdominal pain with fever, inability keep down fluids etcetera I sent a prescription of nausea medicine to [facility] in [place]. This can be constipating. Your coronavirus test came back negative today. I have given you a work note illustrating that you can return to work with 24 hours with no fever, vomiting or diarrhea Please eat a light diet with no spicy fried or fatty foods Prescriptions: New ondansetron 4 mg tablet,disintegrating 4 mg PO Q6H PRN (Reason: nausea and vomiting) Qty: 20 RF: 0 No Action ondansetron 4 mg tablet,disintegrating 4 mg PO Q8H PRN (Reason: nausea and vomiting) Qty: 10 RF: 0 nitrofurantoin monohyd/m-cryst 100 mg capsule 100 mg PO BID RF: 0 [facility]] Stand Alone Forms: Work Release Note <Gino Hernadez DO - Last Filed: 07/08/20 18:01> [facility] ED Attending Rejiature Attestation: I was immediately available in the department for consultation. This documentation has been reviewed and I agree with assessment and plan. Supervised by Gino Hernadez DO
[2020-07-08 16:57] VITALS: BP 113/59; PULSE 77; O2SAT 100
== END 2020-07-08 17:03 | disposition home or self-care (01) ==
PROVIDERS: Emergency Provider Nurse Practitioner Family
DX: D64.9 Anemia, unspecified (principal); R11.2 Nausea with vomiting, unspecified
CPT/HCPCS: 36415; 74022; 80053; 81003; 81025; 83690; 85025; 87635; 96361; 96374; 99284; J2405

== ENCOUNTER 2021-09-10 19:33 | Emergency (ER) | payer OTHER, SELFPAY ==
[2021-09-10 19:52] VITALS: BP 119/64; PULSE 106; RESP 15; TEMP 37.2; O2SAT 100; BMI 22.4
--- NOTE | 2021-09-11 00:54 | ED.BURNSMOKE ---
HPI - Burn/Smoke Inhalation General Chief complaint: Burn/Smoke Inhalation Stated complaint: dropped boiling water on rt foot Time Seen by Provider: 09/11/21 00:54 Source: patient Mode of arrival: Ambulatory Limitations: no limitations History of Present Illness HPI Narrative: This is a 26-year-old female comes emergency department after dropping some boiling water on her foot. Patient states that she was making cup of noodles. She states she immediately had pain. Um she ran her foot under cold water. She has noted a blister showed. There is still pain at the area of the blister the pain had extended further out there was some slight redness but she states that actually retracted to just the area of the blister at this point. She denies any other injuries. She did have any pain on the bottom of her foot or circumferentially. She does not have any injury to the toes. Or over the joint itself of the ankle. Patient states her immunizations are all up-to-date including her tetanus. Denies any other medical issues. No allergies to medications. She denies major surgeries. Related Data Home Medications Medication Instructions Recorded Confirmed nitrofurantoin 100 mg PO BID 12/22/19 12/22/19 monohydrate/macrocrystals 100 mg capsule Previous Rx's Medication Instructions Recorded ondansetron 4 mg disintegrating 4 mg PO Q8H PRN #10 tab 10/21/19 tablet ondansetron 4 mg disintegrating 4 mg PO Q6H PRN #20 tab 07/08/20 tablet bacitracin 500 unit/gram topical 1 applic TOPICAL BID #28 g 09/11/21 ointment Allergies Allergy/AdvReac Type Severity Reaction Status Date / Time No Known Drug Allergies Allergy Verified 12/22/19 09:58 Review of Systems Review of Systems ROS Unobtainable: All systems reviewed & are unremarkable except as noted in HPI and below Patient History Medical History (Updated 09/11/21 @ 01:05 by Marisol Marroquin DO) Anemia Patient denies significant medical history Social History Smoking Status: Current every day smoker Smoking Status: Current every day smoker tobacco type: vaping alcohol intake frequency: a few times a week Substance Use Type: does not use Exam Narrative Exam Narrative: GENERAL: Alert and oriented x three, female in mild distress. HEENT: Head normocephalic, atraumatic, EOMI, pupils reactive, face symmetric, moist mucous membranes EXTREMITIES: Normal range of motion, no clubbing or edema. Neurovascularly intact. Patient has a 2 x 2 cm blister over the dorsum of her midfoot. There does not appear to be any circumferential or involvement of the sides her plantar side of her foot. Patient does not have any involvement of the toes. Does not extend up to ankle. Blisters only very mildly raised. There is some mild erythema. Patient has sensation to light touch as pain over the area blister. No pain in the surrounding area. NEUROLOGICAL: Cranial nerves II through XII grossly intact. Moving all extremities SKIN: Warm, dry, no petechiae, no rashes or lesions. Initial Vital Signs Initial Vital Signs: Vital Signs Temperature 98.9 F 09/10/21 19:52 Pulse Rate 106 H 09/10/21 19:52 Respiratory Rate 15 09/10/21 19:52 Blood Pressure 119/64 09/10/21 19:52 Pulse Oximetry 100 09/10/21 19:52 Course Orders Ordered: Discontinued Medications Bacitracin (Bacitracin Oint 0.9 Gm Pckt) 1 applic TOP NOW ONE Stop: 09/11/21 01:02 Last Admin: 09/11/21 01:11 Dose: 1 applic Documented by: CHERYL Vital Signs Vital signs: Vital Signs - 8 hr 09/10/21 19:52 Temperature 98.9 F Pulse Rate 106 H Respiratory Rate 15 Blood Pressure 119/64 Pulse Oximetry 100 Discharge Plan Departure Patient Disposition: Home Clinical Impression: Second degree burn of foot Instructions: DI for [place]udd Activity Restrictions/Additional Instructions: Follow-up with your physician for recheck. Wound Care: Keep wound(s) clean and dry. Wash daily with soap and water only. Pat dry. Use a nonstick dressing over the wound. I would recommend wearing comfortable shoes that are not closed over that area. Use bacitracin twice daily to open skin or where the blister is present. [facility] [place]. If wound condition worsens (increased/expanding redness, developing fluid blisters, or worsening pain), either contact your doctor for an urgent re-assessment , or return to the Emergency Department. Return to the Emergency Department for any new or worsening symptoms. Return if fever greater than 100.4 Fahrenheit, increased swelling, increasing pain or worsening symptoms such as increased discharge or spreading redness. Prescriptions: New bacitracin 500 unit/gram ointment 1 applic topical BID Qty: 28 0RF No Action ondansetron 4 mg tablet,disintegrating 4 mg PO Q8H PRN (Reason: nausea and vomiting) Qty: 10 0RF nitrofurantoin monohyd/m-cryst 100 mg capsule 100 mg PO BID 0RF ondansetron 4 mg tablet,disintegrating 4 mg PO Q6H PRN (Reason: nausea and vomiting) Qty: 20 0RF Stand Alone Forms: Work Release Note
[2021-09-11] MEDS: BACITRACIN OINT 0.9 GM PCKT 1 APPLIC TOP (01:11)
== END 2021-09-11 01:25 | disposition home or self-care (01) ==
PROVIDERS: Emergency Provider Emergency Medicine
DX: T25.221A Burn of second degree of right foot, initial encounter (principal); X12.XXXA Contact with other hot fluids, initial encounter
CPT/HCPCS: 99282; 99283

== ENCOUNTER 2021-12-10 22:22 | Emergency (ER) | payer OTHER, SELFPAY ==
[2021-12-10 22:24] VITALS: BP 135/94; PULSE 94; RESP 20; TEMP 36.6; O2SAT 100
[2021-12-10] MEDS: ONDANSETRON 4 MG ODT SL (22:47)
--- NOTE | 2021-12-10 23:04 | PC.NURSE ---
Pt reports nausea/vomiting, bilat eye irritation/swelling after cleaning with products Lysol Cling and Fresh and Clorox Bleach Foamer with Scrubbing Bubbles approx 2 hours prior to arrival. She reports nausea mildly improved after vomiting. On visual exam no edema noted to pts face/mouth, lungs clear/equal bilat with normal respiratory rate and effort, speaking in full sentences without apparent distress.
--- NOTE | 2021-12-10 23:49 | ED.ALLEREA ---
HPI - Allergic Reaction General Chief complaint: Allergic Reaction Stated complaint: nausea/vomiting Time Seen by Provider: 12/10/21 23:49 Source: patient Mode of arrival: Ambulatory Limitations: no limitations History of Present Illness HPI narrative: This is a 26-year-old female with known history of anemia was on iron daily. Patient states this evening she mixed lysol, Clorox bleach and scrubbing bubbles and developed irritation of her eye skin, nausea and vomiting as well as irritation of the skin of her chest. Patient denies any shortness of breath or chest pain, pressure or wheezing. Patient states symptoms have improved she had some Zofran here which was helpful. She only had 1 episode of vomiting but states it was prolonged. She states she no longer is symptomatic this occurred about 3 hours prior to evaluation. She denies other medical issues. She does smoke tobacco, occasional alcohol, no illicit. She contacted the nursing hotline referred here to the emergency department for evaluation. Related Data Home Medications Medication Instructions Recorded Confirmed nitrofurantoin 100 mg PO BID 12/22/19 12/22/19 monohydrate/macrocrystals 100 mg capsule Previous Rx's Medication Instructions Recorded ondansetron 4 mg disintegrating 4 mg PO Q8H PRN #10 tab 10/21/19 tablet ondansetron 4 mg disintegrating 4 mg PO Q6H PRN #20 tab 07/08/20 tablet bacitracin 500 unit/gram topical 1 applic TOPICAL BID #28 g 09/11/21 ointment Allergies Allergy/AdvReac Type Severity Reaction Status Date / Time No Known Drug Allergies Allergy Verified 12/22/19 09:58 Review of Systems Review of Systems ROS Unobtainable: All systems reviewed & are unremarkable except as noted in HPI and below Patient History Medical History Anemia Patient denies significant medical history Social History Smoking Status: Current every day smoker Smoking Status: Current every day smoker tobacco type: vaping alcohol intake frequency: a few times a week Substance Use Type: does not use Exam Narrative Exam Narrative: GEN: well nourished, well appearing female, alert and oriented x 3, patient appears to be in no acute distress. HEENT: Atraumatic, pupils are equal round reactive to light, extraocular movements are intact, nares are clear, there is no conjunctival pallor or injection.Throat is clear without any exudates, erythema, tonsillar enlargement or uvular deviation, no stridor. No hoarseness. HEART: Regular rate and rhythm without murmur, clicks, rubs. LUNGS:Lungs clear to auscultation, no wheezes, rales, crackles, chest moves symmetrically ABD:bowel sounds normal, soft, non-tender, no guarding, rebound, rigidity, no masses noted, no hepatosplenomegaly MSCL:full range of motion, normal gait NEURO:CN 2-12 intact, sensation normal SKIN: Rash or erythema noted. Initial Vital Signs Initial Vital Signs: Vital Signs Temperature 97.9 F 12/10/21 22:24 Pulse Rate 94 H 12/10/21 22:24 Respiratory Rate 20 12/10/21 22:24 Blood Pressure 135/94 H 12/10/21 22:24 Pulse Oximetry 100 12/10/21 22:24 Course Orders Ordered: Discontinued Medications Ondansetron HCl (Ondansetron 4 Mg Odt) 4 mg SL NOW ONE Stop: 12/10/21 22:28 Last Admin: 12/10/21 22:47 Dose: 4 mg Documented by: SIOMARA Vital Signs Vital signs: Vital Signs - 8 hr 12/10/21 22:24 12/11/21 00:09 Temperature 97.9 F Pulse Rate 94 H 72 Respiratory Rate 20 18 Blood Pressure 135/94 H 129/70 Pulse Oximetry 100 99 MDM - Allergic Reaction MDM Narrative Medical decision making narrative: This is a 26-year-old female who makes Lysol which is pneumonia chronic with Clorox bleach and scrubbing bubbles unlikely created chlorine gas. She had immediate reaction which has resolved. She feels significantly better and normalized. She defers work note and I feel she is safe to return her bathroom which she was cleaning has been adequately ventilated at home. Discharge Plan Departure Patient Disposition: Home Clinical Impression: Chlorine gas exposure Instructions: DI for Inhalation Injury Activity Restrictions/Additional Instructions: I suspect you had a mild inhalational injury or exposure from mixing and ammonia product with bleach. This and create erick gas which is dangerous and very irritating to your airways. You are cleared to return to work at this time. Make sure your bathroom in the area with the chemicals has been adequately ventilated. Avoid mixing these chemicals in the future. You can call poison Control if you ever concerned the number is for possible exposures or ingestions. Please return if you or worsening chest pain, shortness of breath or wheezing, swelling of your throat or airway, passing out, persistent vomiting, new skin changes or other new or concerning symptoms. Prescriptions: No Action ondansetron 4 mg tablet,disintegrating 4 mg PO Q8H PRN (Reason: nausea and vomiting) Qty: 10 0RF nitrofurantoin monohyd/m-cryst 100 mg capsule 100 mg PO BID 0RF ondansetron 4 mg tablet,disintegrating 4 mg PO Q6H PRN (Reason: nausea and vomiting) Qty: 20 0RF bacitracin 500 unit/gram ointment 1 applic topical BID Qty: 28 0RF Stand Alone Forms: Work Release Note
[2021-12-11 00:09] VITALS: BP 129/70; PULSE 72; RESP 18; O2SAT 99
== END 2021-12-11 00:11 | disposition home or self-care (01) ==
PROVIDERS: Emergency Provider Emergency Medicine
DX: Z77.028 Contact with and (suspected) exposure to other hazardous aromatic compounds (principal); R11.2 Nausea with vomiting, unspecified
CPT/HCPCS: 99283

== ENCOUNTER 2021-12-12 19:56 | Emergency (ER) | payer OTHER, SELFPAY ==
[2021-12-12 20:27] VITALS: BP 104/60; PULSE 90; RESP 18; TEMP 36.6
[2021-12-12 23:45] VITALS: BP 119/68; PULSE 68; RESP 18; O2SAT 100
[2021-12-13 00:05] LABS: COVID19 -Nasal RAPID Negative (Negative)
[2021-12-13 03:04] VITALS: BP 115/61; PULSE 64; RESP 18; TEMP 36.6; O2SAT 98
--- NOTE | 2021-12-13 03:56 | ED.NAVMDI ---
HPI - Nausea/Vomiting/Diarrhea General Chief complaint: Nausea/Vomiting/Diarrhea Stated complaint: blood in feces, diarrhea Time Seen by Provider: 12/13/21 03:47 Source: patient Mode of arrival: Ambulatory History of Present Illness HPI Narrative: 26-year-old woman history of iron deficiency anemia presents with 24 hours of severe crampy diarrhea now noting some bright red blood at the end of stooling. She has no fevers no vomiting no nausea. No headaches, chest pain, palpitations. She reports no travel or antibiotics recently. She has not had significant issues with diarrhea recently. She has been waiting in the waiting room for an extended period time due to dramatic acuity in the emergency this evening and has not had any episodes of stool for the last 8 hours. Related Data Home Medications Medication Instructions Recorded Confirmed nitrofurantoin 100 mg PO BID 12/22/19 12/22/19 monohydrate/macrocrystals 100 mg capsule Previous Rx's Medication Instructions Recorded ondansetron 4 mg disintegrating 4 mg PO Q8H PRN #10 tab 10/21/19 tablet ondansetron 4 mg disintegrating 4 mg PO Q6H PRN #20 tab 07/08/20 tablet bacitracin 500 unit/gram topical 1 applic TOPICAL BID #28 g 09/11/21 ointment Allergies Allergy/AdvReac Type Severity Reaction Status Date / Time No Known Drug Allergies Allergy Verified 12/22/19 09:58 Review of Systems Review of Systems Narrative: Remainder of complete review of systems is otherwise unremarkable except for that included in the HPI. Patient History Medical History (Updated 12/13/21 @ 04:03 by Nya Jones MD) Anemia Patient denies significant medical history Social History Smoking Status: Current every day smoker Smoking Status: Current every day smoker tobacco type: vaping alcohol intake frequency: a few times a week Substance Use Type: does not use Exam Initial Vital Signs Initial Vital Signs: Vital Signs Temperature 97.9 F 12/12/21 20:27 Pulse Rate 90 12/12/21 20:27 Respiratory Rate 18 12/12/21 20:27 Blood Pressure 104/60 12/12/21 20:27 General: Healthy appearing, in no acute distress. Able to give a complete and coherent history. Well-nourished well-developed HEENT: Moist mucous membranes, normal sclera with reactive pupils, Respiratory: Lungs are clear to auscultation, no wheezing no rales no rhonchi. Full and symmetrical air movement Cardiac: Regular rate and rhythm no murmurs no bruits Abdomen: Soft, mild diffuse tenderness without rebound or guarding, normal bowel tones, no flank pain Skin: Warm and dry, no rashes Neurologic: Grossly neurologically intact with no obvious asymmetries or abnormalities Extremities: No trauma, well perfused Psych: Cooperative, appropriate insight and affect Course Orders Ordered: ED Orders 12/12/21 23:44 COVID19 -Nasal swab/Pre-Proc Stat Vital Signs Vital signs: Vital Signs - 8 hr 12/12/21 20:27 12/12/21 23:45 12/13/21 03:04 Temperature 97.9 F 98 F Pulse Rate 90 68 64 Respiratory Rate 18 18 18 Blood Pressure 104/60 119/68 115/61 Pulse Oximetry 100 98 MDM - Nausea/Vomiting/Diarrhea Lab Data Labs: Lab Results 12/12/21 Range/Units 23:44 SARS-CoV-2 (PCR) Negative (Negative) MDM Narrative Medical decision making narrative: 26-year-old woman with 24 hours of diarrhea none for the last 8 hours. With shared decision making at this time we opted to not proceed with any additional workup. She recognizes that she may need to return to the emergency department if she continues to have significant issues. At this time there is no evidence of toxic colitis, acute appendicitis, Clostridium difficile or life-threatening explanation for her acute episode of diarrhea. She feels very comfortable with discharge home as do I. Discharge Plan Departure Patient Disposition: Home Clinical Impression: Diarrhea Qualifiers: Diarrhea type: unspecified type Qualified Code(s): R19.7 - Diarrhea, unspecified Instructions: DI for Diarrhea and Traveler's Diarrhea -- Adult Activity Restrictions/Additional Instructions: Thank you for coming in today and being so patient with your exceptionally long wait. One of the benefits to the long wait is that we have clearly shown you have not had any diarrhea for the last 8 hours. Your exam is very reassuring, there is no signs of significant dehydration or infection. I do believe it is safe to go home at this point. I would recommend adding probiotics to help your colon heal over the next week. Please make sure that you are staying well hydrated and if you have worsening symptoms please feel free to return to the ER Prescriptions: No Action ondansetron 4 mg tablet,disintegrating 4 mg PO Q8H PRN (Reason: nausea and vomiting) Qty: 10 0RF nitrofurantoin monohyd/m-cryst 100 mg capsule 100 mg PO BID 0RF ondansetron 4 mg tablet,disintegrating 4 mg PO Q6H PRN (Reason: nausea and vomiting) Qty: 20 0RF bacitracin 500 unit/gram ointment 1 applic topical BID Qty: 28 0RF
== END 2021-12-13 04:14 | disposition home or self-care (01) ==
PROVIDERS: Emergency Provider Emergency Medicine
DX: R19.7 Diarrhea, unspecified (principal); F17.290 Nicotine dependence, other tobacco product, uncomplicated; Z20.822 Contact with and (suspected) exposure to COVID-19
CPT/HCPCS: 87635; 99281; C9803

== ENCOUNTER 2024-09-26 11:23 | Emergency (ER) | payer OTHER, SELFPAY ==
[2024-09-26 11:29] VITALS: BP 122/66; PULSE 79; RESP 18; TEMP 36.7; O2SAT 97; BMI 28.3
--- NOTE | 2024-09-26 12:22 | DI.US.S_ITS ---
LIMITED ULTRASOUND OF RIGHT BREAST: 09/26/2024 CLINICAL: Diffuse right breast pain x 8 hrs (breast feeding x 11 mos; possible mastitis). No prior exams were available for comparison. Real-time ultrasound of the right breast upper outer quadrant was performed. Rivera scale images of the real-time examination were reviewed. No sonographic abnormality is seen in the area of clinical concern in the right breast from 9 to 12 o'clock at a distance of 12 cm from the nipple and at 10 o'clock, 8 cm from the nipple. IMPRESSION: NEGATIVE No sonographic abnormality in the areas of clinical concern. No sonographic evidence of malignancy. Clinical follow-up is also recommended, and further management of palpable abnormalities or other focal signs or symptoms should be based on the results of clinical evaluation. If palpable abnormality or other concerning symptom persists or progresses, further clinical evaluation should be considered. Recommend routine screening mammogram starting at age 40. Findings and recommendations were conveyed to the patient during today's evaluation. This exam was interpreted at Station ID: [id number]. Electronically Signed By: Radha Costello M.D., Ph.D. eb/:09/26/2024 13:33:57 letter sent: Clinical Evaluation ACR BI-RADS Category 1: Negative
--- NOTE | 2024-09-26 12:45 | ED_ITS ---
HPI - Skin/Abscess/Foreign Bdy <Tristin Sheridan PA-C - Last Filed: 09/26/24 15:45> General Chief complaint: Skin/Abscess/Foreign Body Stated complaint: breast engorgement Time Seen by Provider: 09/26/24 12:15 Source: patient Mode of arrival: Ambulatory Limitations: no limitations History of Present Illness HPI narrative: 29-year-old female who is her for the past 11 months presents to the ED with 1 day of right-sided breast tenderness, swelling, lump. Patient states that since this morning, she has felt a lump, pain, warmth in the lateral, superior region of the right breast. Patient states that she has tried a few things such as hot compresses, using a breast pump to empty the breast. Patient states that she tried to pump twice, was only able to express about an oz of milk. She also had her infant breastfeed from that breast, and he was unable to feed for more than a couple minutes. Patient states that she has never had any mastitis or abscesses prior to this. Patient does say she has had some blocked ducts which usually work with the hot compresses or pumping/feeding. Patient denies fever, chills, nausea, vomiting. Related Data Home Medications Medication Instructions Recorded Confirmed nitrofurantoin 100 mg PO BID 12/22/19 12/22/19 monohydrate/macrocrystals 100 mg capsule Previous Rx's Medication Instructions Recorded ondansetron 4 mg disintegrating 4 mg PO Q8H PRN nausea and 10/21/19 tablet vomiting #10 tabs ondansetron 4 mg disintegrating 4 mg PO Q6H PRN nausea and 07/08/20 tablet vomiting #20 tabs bacitracin 500 unit/gram topical 1 applic topical BID #28 grams 09/11/21 ointment dicloxacillin 500 mg capsule 500 mg PO Q6H 10 days #40 caps 09/26/24 Allergies Allergy/AdvReac Type Severity Reaction Status Date / Time No Known Drug Allergies Allergy Verified 12/22/19 09:58 Review of Systems <Tristin Sheridan PA-C - Last Filed: 09/26/24 15:45> Constitutional Constitutional: Denies chills, Denies fatigue, Denies fever(s), Denies frequent falls, Denies lethargy and Denies weakness Eyes Eyes: Denies change in vision, Denies eye discharge, Denies irritation and Denies loss of vision ENT Ears, Nose, Mouth, and Throat: Denies change in voice, Denies dizziness, Denies neck pain, Denies sore throat and Denies throat swelling Cardiovascular Cardiovascular: Denies chest pain, Denies irregular heart rhythm, Denies lightheadedness, Denies palpitations, Denies dyspnea, Denies dyspnea on exertion and Denies orthopnea Respiratory Respiratory: Denies cough, Denies dyspnea, Denies dyspnea on exertion and Denies wheezing Gastrointestinal Gastrointestinal: Denies abdominal pain, Denies change in bowel habits, Denies diarrhea, Denies nausea and Denies vomiting Musculoskeletal Musculoskeletal: Denies neck pain and Denies numbness Integumentary/Breasts Skin/Breast: Reports breast swelling, Reports breast pain, Reports breast mass, Denies pruritus, Denies erythema, Denies rash and Denies wounds Comments: Unable to express more than an answer to of milk from the right breast. Neurologic Neurologic: Denies behavioral changes, Denies confusion, Denies dizziness, Denies frequent falls, Denies loss of vision, Denies numbness and Denies weakness Psychiatric Psychiatric: Denies anxiety, Denies behavioral changes, Denies confusion, Denies depression, Denies homicidal ideation and Denies suicidal ideation Endocrine Endocrine: Denies fatigue, Denies flushing and Denies palpitations Hematologic/Lymphatic Hematologic/Lymphatic: Denies easy bruising Allergic/Immunologic Allergic/Immunologic: Denies urticaria, Denies throat swelling and Denies wheezing Patient History <Tristin Sheridan PA-C - Last Filed: 09/26/24 15:45> Medical History (Updated 09/26/24 @ 15:23 by Tristin Sheridan PA-C) Anemia Patient denies significant medical history Social History Smoking Status: Former smoker Smoking Status: Former smoker tobacco type: vaping alcohol intake frequency: holidays/special occasions only Substance Use Type: does not use Exam <Tristin Sheridan PA-C - Last Filed: 09/26/24 15:45> Narrative Exam Narrative: Const General:?cooperative, healthy appearing and comfortable [facility] Head:?normal to inspection Ears:?hearing grossly normal bilaterally Nose:?external nose normal Face and sinus:?normal facial exam and sinuses nontender Mouth:?oral mucosae normal Throat:?posterior oropharynx normal Eyes General:?appearance normal, both eyes and all related structures Neck Neck:?normal visual inspection and no lymphadenopathy noted Resp Effort & Inspection:?normal respiratory effort Auscultation:?clear to auscultation bilaterally Cardio Rate:?regular rate Rhythm:?regular rhythm Breast Right breast with some induration/blocked ducts/abscess, warmth to touch, tender to palpation. Neuro General:?patient alert, patient awake and patient oriented x3 Initial Vital Signs Initial Vital Signs: Vital Signs Temperature 98.1 F 09/26/24 11:29 Pulse Rate 79 09/26/24 11:29 Respiratory Rate 18 09/26/24 11:29 Blood Pressure 122/66 09/26/24 11:29 Pulse Oximetry 97 09/26/24 11:29 Oxygen Delivery Method Room Air 09/26/24 11:29 <Marisol Marroquin DO - Last Filed: 09/26/24 18:57> Initial Vital Signs Initial Vital Signs: Vital Signs Temperature 98.1 F 09/26/24 11:29 Pulse Rate 79 09/26/24 11:29 Respiratory Rate 18 09/26/24 11:29 Blood Pressure 122/66 09/26/24 11:29 Pulse Oximetry 97 09/26/24 11:29 Oxygen Delivery Method Room Air 09/26/24 11:29 Course <Tristin Sheridna PA-C - Last Filed: 09/26/24 15:45> Orders Ordered: ED Orders 09/26/24 12:22 US breast RT limited Stat Vital Signs Vital signs: Vital Signs - 8 hr 09/26/24 11:29 09/26/24 15:33 Temperature 98.1 F 98.0 F Pulse Rate 79 67 Respiratory Rate 18 16 Blood Pressure 122/66 119/69 Pulse Oximetry 97 99 Oxygen Delivery Method Room Air Room Air <Marisol Marroquin DO - Last Filed: 09/26/24 18:57> Orders Ordered: ED Orders 09/26/24 12:22 US breast RT limited Stat Vital Signs Vital signs: Vital Signs - 8 hr 09/26/24 11:29 09/26/24 15:33 Temperature 98.1 F 98.0 F Pulse Rate 79 67 Respiratory Rate 18 16 Blood Pressure 122/66 119/69 Pulse Oximetry 97 99 Oxygen Delivery Method Room Air Room Air MDM - Skin/Abscess/Foreign Bdy <Tristin Sheridan PA-C - Last Filed: 09/26/24 15:45> MDM Narrative Medical decision making narrative: 29-year-old female who is her for the past 11 months presents to the ED with 1 day of right-sided breast tenderness, swelling, lump. Concern for mastitis/blocked ducts versus abscess versus other. Will obtain an ultrasound. Patient took some Tylenol this morning, declines any other medications. Will reassess. While waiting for ultrasound results, patient was able to express milk successfully from the right breast after applying some warm compresses and massage. Ultrasound shows no sonographic abnormality in the area of clinical concern in the right breast. Discussed findings with patient. Prescribed antibiotics to use if symptoms do not resolve in a day. Discussed with that she can continue to breast feed frequently, pump, apply warm compresses, massage to continue to unblock the ducts. Encouraged patient to start antibiotics if symptoms do not resolve in 24 hours. Recommend follow-up with PCP/OBGYN as soon as possible. ED return precautions discussed with patient. Patient verbalized understanding. Medical records reviewed: Yes Discharge Plan Departure Patient Disposition: Home Clinical Impression: Mastitis Instructions: DI for Mastitis Activity Restrictions/Additional Instructions: You were evaluated in the ED today for breast engorgement and pain. Your ultrasound was normal. It appears that your symptoms are due to blocked milk ducts, and it is reassuring that you are able to express milk after some hot compresses in the ED today. Please continue frequent from both breasts, augmenting with pumping, warm compresses, massage. If your symptoms do not resolve within 24 hours, you may start the antibiotics that have been prescribed for you. Please follow-up with your PCP/OBGYN as soon as possible. Return to the ED if you have worsening symptoms, fever, chills, vomiting. Prescriptions: New dicloxacillin 500 mg capsule 500 mg PO Q6H 10 Days Qty: 40 0RF No Action ondansetron 4 mg tablet,disintegrating 4 mg PO Q8H PRN (Reason: nausea and vomiting) Qty: 10 0RF nitrofurantoin monohyd/m-cryst 100 mg capsule 100 mg PO BID ondansetron 4 mg tablet,disintegrating 4 mg PO Q6H PRN (Reason: nausea and vomiting) Qty: 20 0RF bacitracin 500 unit/gram ointment 1 applic topical BID Qty: 28 0RF Stand Alone Forms: Patient Portal/API/Survey ED Sign-out <Marisol Marroquin DO - Last Filed: 09/26/24 18:57> Cosign ED Attending Cosignature Attestation: I was immediately available in the department for consultation.
--- NOTE | 2024-09-26 15:21 | PC.NURSE ---
center unable to provide a breast pump for patient use. Patient offered warm compress and given supplies to self manually express breast milk from affected side. Patient able to express breast milk with ease. Provider updated.
[2024-09-26 15:33] VITALS: BP 119/69; PULSE 67; RESP 16; TEMP 36.7; O2SAT 99
== END 2024-09-26 15:33 | disposition home or self-care (01) ==
PROVIDERS: Emergency Provider Student in an Organized Health Care Education/Training Program
DX: N61.0 Mastitis without abscess (principal)
CPT/HCPCS: 76642; 99281; 99283

== ENCOUNTER → 2025-02-16 15:58 | Outpatient (CLI) | payer OTHER, SELFPAY ==
--- NOTE | 2025-02-16 16:00 | DI.US.S_ITS ---
PROCEDURE: US OB LIMITED INDICATIONS: Dating and viability, late to care OUTSIDE/PRIOR DATING DATA: Last menstrual period (LMP): 11/05/2024. LMP-based estimated date of delivery (LEN): 08/04/2025. First dating scan (date and location): 02/17/2025. Estimated date of delivery (LEN) from first dating scan: 08/01/2025. TECHNIQUE: Real-time scanning was performed of the fetus, with image documentation. COMPARISON: None. FINDINGS: A single living intrauterine gestation is present. Presentation: Variable. Placenta: Placental position is posterior, without previa. Amniotic fluid index: 14.1 cm, normal range is 5-24 cm. Single deepest vertical pocket is 5.3 cm. heart rate: 136 beats per minute. Maternal cervical canal: 3.4 cm long. Normal lower limit is 2.5 cm. Clinically estimated gestational age from LMP: 15 weeks, 6 days Estimated gestational age from initial scan: 16 weeks, 2 days. Estimated weight of 140 g corresponding to 47th percentile. Limit evaluation of anatomy demonstrates no gross abnormalities. IMPRESSION: Single intrauterine gestation with estimated gestational age of 16 weeks, 2 days based on biometry, which is concordant with clinical dating. Posterior placenta without evidence of previa. Approved by: Radha Costello M.D.,Ph.D. on 02/16/2025 at 20:24
== END ==
PROVIDERS: PCP Internal Medicine; Referring Provider Student in an Organized Health Care Education/Training Program; Visit Provider Student in an Organized Health Care Education/Training Program
DX: Z34.82 Encounter for supervision of other normal pregnancy, second trimester (principal); Z3A.16 16 weeks gestation of pregnancy
CPT/HCPCS: 76815

== ENCOUNTER → 2025-02-17 14:48 | Outpatient (CLI) | payer OTHER, SELFPAY ==
[2025-02-17 20:28] LABS: Urine N gonorrhoeae NOT DETECTED
[2025-02-17 20:29] LABS: Urine Chlamydia NOT DETECTED
== END ==
PROVIDERS: PCP Internal Medicine; Visit Provider Student in an Organized Health Care Education/Training Program
DX: Z34.80 Encounter for supervision of other normal pregnancy, unspecified trimester (principal)
CPT/HCPCS: 87491; 87591

== ENCOUNTER → 2025-02-17 15:53 | Outpatient (CLI) | payer OTHER, SELFPAY ==
[2025-02-17 16:41] LABS: Add Manual Diff / Slide Review NO; Basophils Absolute Auto 100 /uL (0-100); Basophils Percent Auto 0.6 % (0-2); Eosinophils Absolute Auto 100 /uL (0-450); Hematocrit 33.9 % (36-46); Hemoglobin 10.9 g/dL (12.0-16.0); Lymphocytes Absolute Auto 2700 /uL (1100-4500); Lymphocytes Percent Auto 26.4 % (25-40); Mean Corpuscular HGB Conc 32.2 % (30-36); Mean Corpuscular Hemoglobin 26.7 PG (26-34); Mean Corpuscular Volume 82.8 fL (80-100); Monocytes Absolute Auto 700 /uL (0-900); Monocytes Percent Auto 7.1 % (3-14); Neutrophils Absolute Auto 6800 /uL (1500-7000); Neutrophils Percent Auto 64.9 % (50-75); Platelet Count 290 X10^3/uL (150-400); Red Blood Cell Count 4.09 X10^6/uL (4.0-5.2); Red Cell Distribution Width 15.8 % (11.6-14.8); White Blood Cell Count 10.4 X10^3/uL (4.5-11.0)
[2025-02-17 16:55] LABS: Appearance Urine UA CLOUDY; Bilirubin Urine UA NEGATIVE (NEGATIVE); Color Urine UA YELLOW; Glucose Urine UA NEGATIVE (Negative); Ketones Urine UA NEGATIVE (NEGATIVE); Leukocyte Esterase Urine UA 1+ (NEGATIVE); Nitrite Urine UA POSITIVE (Negative); Occult Blood Urine UA NEGATIVE (Negative); Protein Urine UA NEGATIVE (Negative); Specific Gravity Urine UA 1.025 (1.000-1.035); Urobilinogen Urine UA 0.2 E.U./dL (0.2)
[2025-02-17 17:02] LABS: HEMOLYSIS < 15 (0-50); Iron 76 ug/dL (37-170)
[2025-02-17 17:03] LABS: Natera Collection Specimen Collected
[2025-02-17 17:04] LABS: Bacteria Urine Many (>30); RBC Urine None Seen (0-5/HPF); Squamous Epithelial Cell Urine None Seen (0-5/HPF); Urine Volume 10mL (spun); WBC Urine 5-10/HPF (0-5/HPF)
[2025-02-17 17:15] LABS: Percent Iron Saturation 19 % (15-50); Total Iron Binding Capacity 408 ug/dL (265-497); Transferrin 364 mg/dL (206-381)
[2025-02-18 14:52] LABS: Hepatitis B Surface Antigen NEGATIVE s/c (NEGATIVE)
[2025-02-18 15:09] LABS: HIV 1 & 2 Ab/Ag 4th Gen Combo NEGATIVE (NEGATIVE); Hep C Virus Ab w/Reflex Quant NEGATIVE s/c (NEGATIVE)
[2025-02-19 08:36] LABS: Varicella IgG Antibody Reactive (Non Reactive)
== END ==
PROVIDERS: PCP Internal Medicine; Referring Provider Student in an Organized Health Care Education/Training Program; Visit Provider Student in an Organized Health Care Education/Training Program
DX: Z34.82 Encounter for supervision of other normal pregnancy, second trimester (principal); Z36.0 Encounter for antenatal screening for chromosomal anomalies; D64.9 Anemia, unspecified
CPT/HCPCS: 36415; 80055; 81003; 81015; 83540; 83550; 86787; 86803; 86850; 86900; 86901; 87086; 87389

== ENCOUNTER → 2025-03-06 14:24 | Outpatient (CLI) | payer OTHER, SELFPAY | PROVIDERS: PCP Internal Medicine; Referring Provider Student in an Organized Health Care Education/Training Program; Visit Provider Student in an Organized Health Care Education/Training Program | DX: Z34.90 Encounter for supervision of normal pregnancy, unspecified, unspecified trimester (principal) | CPT/HCPCS: 87077; 87086; 87186 ==

== ENCOUNTER → 2025-04-03 07:15 | Outpatient (CLI) | payer OTHER, SELFPAY ==
--- NOTE | 2025-04-03 07:16 | DI.US.S_ITS ---
PROCEDURE: US OB >= 14 WEEKS FETUS INDICATIONS: ANATOMY OUTSIDE/PRIOR DATING DATA: Last menstrual period (LMP): October 28, 2024. LMP-based estimated date of delivery (LEN): August 04, 2025. First dating scan (date and location): February 16, 2025. Estimated date of delivery (LEN) from first dating scan: August 01, 2025. The calculations are made using the LMP LEN of August 04, 2025. TECHNIQUE: Real-time scanning was performed of the fetus, with image documentation and biometric measurements. Endovaginal scanning: Not performed COMPARISON: [facility], OB LIMITED, 02/16/2025, 16:51. FINDINGS: General: A single living intrauterine gestation is present. Presentation: Vertex. Placenta: Placental position is posterior , without previa. Amniotic fluid index: 19.5 cm, normal range is 5-24 cm. Single deepest vertical pocket is 6.1 cm. heart rate: 143 beats per minute. Maternal cervical canal: 4.8 cm long. Normal lower limit is 2.5 cm. biometrics: Biparietal diameter: 5.6 cm, 22 weeks and 6 days Head circumference: 20.7 cm, 22 weeks and 5 days Abdominal circumference: 19.1 cm, 23 weeks and 6 days Femur length: 4.0 cm, 22 weeks and 6 days Clinically estimated gestational age: 22 weeks and 3 days Composite gestational age from present scan: 23 weeks and 1 day Estimated weight and percentile: 584 g which correlates with the 86 percentile for gestational age Anatomic survey: Neuro: Ventricles are non-dilated at less than 10 mm. Cisterna magna is normal at 3-11 mm. Cerebellum is normal in size and morphology. Nuchal skin fold: Normal at less than 6 mm between 14-21 weeks gestational age. Face: Nose and lips, facial profile are normal. Spine: No evidence for spina bifida. Heart: 4-chambered heart is present with apex pointed towards the midline and right chest which may be related to mass effect of cystic lesions in the left lung/hemithorax versus possible diaphragmatic hernia. Diaphragm: Diaphragm is not well visualized. Stomach: Left-sided stomach is present. Kidneys: No gross hydronephrosis. Normal is less than 5 mm in 2nd trimester, less than 7 mm in 3rd trimester. Cord: 3-vessel cord has orthotopic insertion. Bladder: Normal in size. Extremities: All 4 extremities identified. IMPRESSION: Single living intrauterine gestation with estimated sonographic gestational age of approximately 23 weeks and 1 day versus approximately 22 weeks and 3 days by last menstrual period. Estimated weight of approximately 584 g which correlates with the 86th percentile for gestational age. There is abnormal appearance of the chest/thorax with multiple cystic lesions in the left lung/hemithorax causing displacement of the heart towards the right. Findings may be related to mass effect from possible congenital pulmonary airway malformation and/or possible diaphragmatic hernia. Other anatomic structures appear unremarkable. Recommend referral to tertiary center for further evaluation. We strive to produce accurate, complete, and clear reports of imaging services. To assist us in improving patient care, this report was composed using standard report templates and voice recognition software. Therefore, it may contain abnormal punctuation, insertions and/or omissions. Occasional wrong-word or sound-alike substitutions may occur. Though we review the report and make efforts to correct it, we do recommend that the report be read carefully in proper context to recognize any text inaccuracies. Dictated by: Felix Long M.D. on 04/03/2025 at 22:18 Approved by: Felix Long M.D. on 04/06/2025 at 13:15
== END ==
PROVIDERS: PCP Internal Medicine; Referring Provider Student in an Organized Health Care Education/Training Program; Visit Provider Student in an Organized Health Care Education/Training Program
DX: Z34.92 Encounter for supervision of normal pregnancy, unspecified, second trimester (principal); Z3A.20 20 weeks gestation of pregnancy
CPT/HCPCS: 76811

== ENCOUNTER → 2025-05-16 11:48 | Outpatient (CLI) | payer OTHER, SELFPAY ==
[2025-05-16 13:32] LABS: Hematocrit 31.6 % (36-46); Hemoglobin 10.3 g/dL (12.0-16.0)
[2025-05-16 14:02] LABS: GTT (PREG) 1 Hour PP 50gm Dose 139 mg/dL (76-139)
== END ==
PROVIDERS: PCP Internal Medicine; Referring Provider Student in an Organized Health Care Education/Training Program; Visit Provider Student in an Organized Health Care Education/Training Program
DX: Z13.1 Encounter for screening for diabetes mellitus (principal); Z13.0 Encounter for screening for diseases of the blood and blood-forming organs and certain disorders involving the immune mechanism
CPT/HCPCS: 36415; 82950; 85014; 85018